=== PATIENT | male | born 1980 ===

== ENCOUNTER → 2017-06-14 | Emergency (ER) | payer OTHER ==
[~2017-06-14] VITALS: Ht 175.3 cm; Wt 85.3 kg
[~2017-06-14] MED LIST: DOLOGESIC CAPLE1 TAB PO; KETO10TA2 PO; TAMS0.4C PO
== END | disposition home or self-care (01) ==
LOC: ER 01:39
DX: N20.1 Calculus of ureter (principal)

== ENCOUNTER 2022-09-13 23:18 | Emergency (ER) | payer OTHER ==
[~2022-09-13] VITALS: Ht 175.3 cm; Wt 86.2 kg
== END 2022-09-14 01:36 | disposition home or self-care (01) ==
LOC: ER 23:18
DX: Z48.02 Encounter for removal of sutures (principal)